=== PATIENT | female | born 1985 | race African-American/Black ===

== ENCOUNTER 2016-08-26 07:15 | Inpatient (IN) | payer OTHER ==
[~2016-08-26] VITALS: Ht 175.3 cm; Wt 91.2 kg
[2016-08-26] VITALS (14 sets, daily range): BP systolic 104–128; RESP 18–28; TEMP 97.4–98.6; Ht 175.3 cm; Wt 91.2 kg
[2016-08-26] MEDS ORDERED: OXYTOCIN 15 UNITS/250 ML NS 500 ML IV ONE (07:32)
[2016-08-26] MEDS ORDERED: LIDOCAINE 1% 30 ML PF ONE (07:32)
[2016-08-26] MEDS: OXYTOCIN 15 UNITS/250 ML NS 250 ML IV SCH ×2 (07:40→08:18)
[2016-08-26] MEDS ORDERED: MAG HYDROX 30 ML UDC PO PRN (07:50)
[2016-08-26] MEDS ORDERED: OXYTOCIN 15 UNITS/250 ML NS 250 ML IV SCH (07:50)
[2016-08-26] MEDS ORDERED: TDaP 0.5 ML VIAL IM.VACC ONE (07:50)
[2016-08-26] MEDS ORDERED: BISACODYL 10 MG SUPP RECTAL PRN (07:50)
[2016-08-26] MEDS ORDERED: MEASLES,MUMPS,RUBELLA VAC SUBQ.VACC ONE (07:50)
[2016-08-26] MEDS ORDERED: DERMOPLAST SPRAY TOPICAL PRN (07:50)
[2016-08-26] MEDS ORDERED: ASTRINGENT MED PADS 40'S TOPICAL PRN (07:50)
[2016-08-26] MEDS ORDERED: ZOLPIDEM 5 MG TAB PO PRN (07:50)
[2016-08-26] MEDS ORDERED: FAMOTIDINE 20 MG TAB PO PRN (07:55)
[2016-08-26] MEDS ORDERED: PROMETHAZINE 25 MG/ML VIAL IV PRN (07:55)
[2016-08-26] MEDS ORDERED: ALU/MAG/SIM 30 ML UDC PO PRN (07:55)
[2016-08-26] MEDS ORDERED: LIDOCAINE 1% BUFFERED 1 ML SYR INTRADERM PRN (07:55)
[2016-08-26] MEDS ORDERED: METOCLOPRAMIDE 10 MG/2 ML VIAL IV PUSH PRN (07:55)
[2016-08-26] MEDS ORDERED: FAMOTIDINE 20 MG INJ IV PRN (07:55)
[2016-08-26] MEDS ORDERED: LIDOCAINE 1% 30 ML PF INFILTRATE ONE (07:55)
[2016-08-26] MEDS ORDERED: TERBUTALINE 1 MG/ML VIAL SUBQ PRN (07:55)
[2016-08-26] MEDS ORDERED: ONDANSETRON 4 MG VIAL IV PRN (07:55)
[2016-08-26] MEDS ORDERED: LACT RINGERS 1,000 ML IV SCH (07:55)
[2016-08-26] MEDS ORDERED: ACETAMINOPHEN 325 MG TAB PO PRN (07:55)
[2016-08-26] MEDS: MISOPROSTOL 200 MCG TAB PO SCH ×2 (08:08→12:43)
[2016-08-26] MEDS ORDERED: [UNRECOGNIZED DRUG - REMARK] XX SCH (08:09)
[2016-08-26] MEDS ORDERED: MISOPROSTOL 100 MCG TAB ONE ×2 (08:10→12:39)
[2016-08-26] MEDS: HYDROCORT 2.5% CR 30 GM RECTAL SCH ×2 (09:59→21:57)
[2016-08-26] MEDS: DOCUSATE SOD 100 MG CAP PO SCH ×2 (10:27→21:35)
[2016-08-26] MEDS: Ibuprofen 600 MG TAB PO SCH ×2 (12:43→17:12)
[2016-08-27] MEDS: Ibuprofen 600 MG TAB PO SCH ×3 (00:31→12:29)
[2016-08-27 01:35] VITALS: BP_SYST 109; RESP 16; TEMP 98.1
[2016-08-27 05:14] VITALS: BP_SYST 110; RESP 17; TEMP 97.7
[2016-08-27] MEDS: DOCUSATE SOD 100 MG CAP PO SCH (09:33)
[2016-08-27] MEDS: HYDROCORT 2.5% CR 30 GM RECTAL SCH (09:34)
[2016-08-27 09:35] VITALS: BP_SYST 121; TEMP 98.2
[2016-08-27 13:14] VITALS: BP_SYST 103; RESP 16; TEMP 98.2
[2016-08-27 15:23] VITALS: BP_SYST 106; RESP 16; TEMP 97.7
[2016-08-27 15:27] VITALS: BP_SYST 106; RESP 16; TEMP 97.7
== END 2016-08-27 16:00 | disposition home or self-care (01) | DRG 775 ==
LOC: LDOP 07:15 → LD 07:18 → EDBD 07:25 → LDOP 07:25 → OB 13:45
PROVIDERS: ADMIT Obstetrics & Gynecology; ATTEND Obstetrics & Gynecology
PROC: 10E0XZZ Delivery of Products of Conception, External Approach (ICD-10-PCS; principal; 2016-08-26)
PROC: 10907ZC Drainage of Amniotic Fluid, Therapeutic from Products of Conception, Via Natural or Artificial Opening (ICD-10-PCS; 2016-08-26)
DX: O62.3 Precipitate labor (principal); F17.210 Nicotine dependence, cigarettes, uncomplicated; O99.334 Smoking (tobacco) complicating childbirth; Z3A.37 37 weeks gestation of pregnancy; Z37.0 Single live birth; O70.0 First degree perineal laceration during delivery
CPT/HCPCS: 80307; 82803; 85014; 85018; 85025; 86850; 86900; 86901